=== PATIENT | female | born 1990 | race Caucasian/White ===

== ENCOUNTER → 2019-12-17 | Outpatient (CLI) | payer OTHER ==
--- NOTE | 2019-12-17 17:32 | CARDNUC ---
[place] [address] CARDIAC NUCLEAR IMAGING REPORT Name: VALERIYAUDRA MERINO Room: [facility]#: [id number] Admission: 12/17/19 Attend Phys: Donell Reaves, Discharge: Date of : 86 Date of Service: 12/17/19 1731 Report #: [id number] THIS REPORT FOR: cc: Shanice Gallego Kathleen M. DO Liston, Michael J. MD [facility] ~ APPROVED REPORT Study performed: 12/17/2019 14:51:28 Exam: Nuclear Stress Test Indication: Chest pain Patient Location: Out-Patient Stress Tech: Alyx Ricardo Stress Nurse: Charlette Whiting RN Ht: 5 ft 7 in Wt: 196 lbs BSA: 2.00 m2 BMI: 30.69 Medical History Medications: verapamil Allergies: No known drug allergies Cardiac Risk Factors: FHX of CAD, Tobacco History (Former) Exercise History: Physically active Stress Test Details Stress Test: Exercise stress testing was performed using a Jamie protocol. HR Resting HR: 69 bpm Max Heart Rate (APMHR): 189 bpm Max HR Achieved: 169 bpm Target HR (85% APMHR): 160 bpm % of APMHR: 89 Recovery HR: 103 bpm BP Resting BP: 136/46 mmHg Max BP: 177/74 mmHg ECG Resting ECG: Sinus Rhythm Stress ECG: Sinus Tachycardia ST Change: None Arrhythmia: None Recovery ECG: [place] [address] CARDIAC NUCLEAR IMAGING REPORT Name: AUDRA CROOKS Room: [facility]#: [id number] Admission: 12/17/19 Attend Phys: Donell Reaves, Discharge: Date of : 86 Date of Service: 12/17/19 1731 Report #: [id number] Change: None Recovery Arrhythmia: None Clinical Reason for Termination: Fatigue, Maximal effort Exercise duration: 8 min 57 sec Exercise capacity: 10.16 METs Functional Aerobic Impairment 89% The patient tolerated standard Jamie protocol exercise without significant cardiac symptoms. Stress ECG Conclusion Baseline twelve-lead EKG shows sinus rhythm without significant ST segment or T wave abnormality. EKGs obtained during and post exercise shows sinus rhythm and sinus tachycardia with no significant ST segment or T wave changes when compared to baseline. There were no stress-induced arrhythmias. NM EXAM: Myocardial Perfusion REST/STRESS Resting Data Rest SPECT myocardial perfusion imaging was performed in supine position 30 minutes following the intravenous injection of 9.2 mCi of Tc-99m Sestamibi. Time of rest injection: 1325 The images were gated to evaluate regional wall motion and calculate left ventricular ejection fraction. Administration Route: IV Administration Site: Left AC Pharmacologic Stress Exercise Stress At peak stress, the patient was injected intravenously with 32.6mCi of Tc-99m Sestamibi. Time of stress injection: 1445 Administration Route: IV Administration Site: Left AC Heart Rate at time of stress injection: 170 bpm. Patient continued to exercise for 1 minute(s). Gated Stress SPECT was performed 30 minutes after stress injection. The images were gated to evaluate regional wall motion and calculate left ventricular ejection fraction. [place] [address] CARDIAC NUCLEAR IMAGING REPORT Name: AUDRA CROOKS Room: [facility]#: [id number] Admission: 12/17/19 Attend Phys: Donell Keenegs, Discharge: Date of : 86 Date of Service: 12/17/19 1731 Report #: [id number] Study Quality Study: Good Artifact: Mild Breast artifact Study Data At rest, the left ventricular ejection fraction was 73%.. Post stress, the left ventricular ejection was 76%.. TID = 0.80. Perfusion Perfusion images obtained in the supine position at rest and post exercise stress show very mild photopenia in the mid to apical anterior wall that resolves with post-rest prone imaging suggesting breast attenuation artifact. Additionally wall motion in this region is normal. No other significant fixed or reversible defects are identified. Wall Motion Normal left ventricular wall motion. Nuclear Conclusion ECG Findings: negative for ischemia Clinical Findings: negative for ischemia Nuclear Findings: negative for ischemia Exercise Capacity: Fair Left Ventricular Function: normal Risk Study: low Perfusion study show no defect to suggest infarct or ischemia. Left ventricular systolic function appears normal on gated studies. This is a low risk study. <Conclusion> Baseline twelve-lead EKG shows sinus rhythm without significant ST segment or T wave abnormality. EKGs obtained during and post exercise shows sinus rhythm and sinus tachycardia with no significant ST segment or T wave changes when compared to baseline. There were no stress-induced arrhythmias. <ELECTRONICALLY SIGNED> By: Robinson Gutiérrez MD, FACC 12/17/19 173 [id number] Robinson Gutiérrez MD, FACC /INF
== END ==
LOC: M.NUC 11-19 16:00 → M.CRD 12-01 13:00 → M.NUC 12-01 13:00
PROVIDERS: ATTEND Internal Medicine
DX: R00.0 Tachycardia, unspecified (principal); R94.39 Abnormal result of other cardiovascular function study